=== PATIENT | female | born 1960 | race African-American/Black ===

== ENCOUNTER → 2024-02-10 | Day surgery (SDC) | payer MEDICAID ==
[~2024-02-10] VITALS: Ht 170.2 cm; Wt 86.6 kg
[~2024-02-10] MED LIST: ACETAMINOPHEN 1000MG/100ML 100 ML IV NR; BUPIVACAINE HCL/PF 0.5% (5MG/ML) 10ML ONE; CYCL10TA21 PO; DEXAMETHASONE 4MG/ML 1ML VIAL ONE; FENTANYL CITRATE/PF 50MCG/ML 2ML VIAL IV PRN; FENTANYL CITRATE/PF 50MCG/ML 2ML VIAL ONE; IBUP-2029 PO; MIDAZOLAM HCL 2 MG/2 ML VIAL ONE; ONDANSETRON HCL 4MG/2ML INJ IV PRN; ONDANSETRON HCL 4MG/2ML INJ ONE; PANT40TA51 PO; PROPOFOL 200MG/20ML VIAL IV ONE; ROCURONIUM BROMIDE 10MG/ML VIAL 5ML IV ONE; SKIN ADHESIVE 0.7 GM EA TOP ONE; SUGAMMADEX SODIUM 200MG/2ML VIAL IV ONE
[2024-02-10] MEDS: LACTATED RINGERS 1,000 ML IV SCH (07:41)
[2024-02-10 13:40] VITALS: BP 165/68; PULSE 66; RESP 20
[2024-02-10] MEDS: HYDROMORPHONE HCL/PF 1MG/ML INJ IV PRN (13:40)
== END | disposition home or self-care (01) ==
LOC: OR 05:59
PROVIDERS: ATTEND Surgery
DX: K80.12 Calculus of gallbladder with acute and chronic cholecystitis without obstruction (principal); I10 Essential (primary) hypertension; K21.9 Gastro-esophageal reflux disease without esophagitis; G47.30 Sleep apnea, unspecified; Z85.3 Personal history of malignant neoplasm of breast; Z79.899 Other long term (current) drug therapy; Z90.710 Acquired absence of both cervix and uterus; Z98.890 Other specified postprocedural states
CPT/HCPCS: 47562; 88304; J3010; J3490 ×2; J1100; J2250; J2405; J2704; J1170; J7030; J0131